=== PATIENT | female | born 1995 | race Caucasian/White ===

== ENCOUNTER 2019-04-20 15:00 | Emergency (ER) | payer BC ==
[~2019-04-20] VITALS: Ht 162.6 cm; Wt 86.2 kg
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
--- OUTSIDE RECORDS SUMMARY | 2019-04-20 15:02 | XMS REPORT | Clinical Summary ---
Author Author [facility] Organization [facility] Address Unknown Phone Unavailable Care Team Providers Care Biodiesel Production Associate Name Role Phone Asked, No Pcp PCP Unavailable Allergies No Known Allergies Medications End Date Status Medication Sig Dispensed Refills Start Date Active ethynodiol diac-eth Take 1 tablet 84 tablet 4 estradiol (ZOVIA 1/35E, by mouth 9 28,) 1-35 mg-mcg per daily. tablet 08/29/2018 ethynodiol diac-eth Take 1 tablet 84 tablet 4 estradiol (ZOVIA 1/35E, by mouth 7 28,) 1-35 mg-mcg per daily. tablet 11/29/2018 ethynodiol diac-eth Take 1 tablet 84 tablet 0 estradiol (KELNOR,ZOVIA) by mouth 9 1-35 mg-mcg per tablet daily for 84 days. 01/31/2019 Discontinued (Reorder) ethynodiol diac-eth Take 1 tablet 0 estradiol (ZOVIA 1/35E, by mouth 28,) 1-35 mg-mcg per daily. tablet Active Problems Not on file Encounters Care Team Description Date Type Specialty Richard Velez MD Well woman exam (Primary Dx); Screening examination for venereal disease 01/31/2019 Office Visit Obstetrics and Gynecology Daria Sandra MA 09/06/2018 Refill Obstetrics and Gynecology after 04/19/2018 Family History Medical History Relation Name Comments No Known Problems Father No Known Problems Mother Relation Name Status Comments Father Alive Mother Alive Social History Date Tobacco Use Types Packs/Day Years Used Never Smoker Smokeless Tobacco: Never Used Drinks/Week oz/Week Comments Alcohol Use ocassional Yes Sex Assigned at Date Recorded Not on file Industry Job Start Date Occupation Not on file Not on file Not on file Travel End Travel History Travel Start No recent travel history available. Last Filed Vital Signs Reading Time Taken Comments Vital Sign 126/77 01/31/2019 10:51 AM CDT Blood Pressure 96 01/31/2019 10:51 AM CDT Pulse - - Temperature - - Respiratory Rate - - Oxygen Saturation - - Inhaled Oxygen Concentration 89.4 kg (197 lb) 01/31/2019 10:51 AM CDT Weight 162.6 cm (5' 4") 01/31/2019 10:51 AM CDT Height 33.81 01/31/2019 10:51 AM CDT Body Mass Index Plan of Treatment Health Maintenance Due Date Last Done Comments INFLUENZA VACCINE 04/03/2019 Procedures Comments Procedure Name Priority Date/Time Associated Diagnosis HIV 1/2 ANTIGEN/ANTIBODY, Routine 01/31/2019 FOURTH GENERATION W/RFL 11:12 AM CDT (REFLEX [facility]) RPR SCREEN Routine 01/31/2019 Well woman exam 11:12 AM CDT Screening examination for venereal disease HEPATITIS B SURFACE Routine 01/31/2019 Well woman exam ANTIGEN 11:12 AM CDT Screening examination for venereal disease HEPATITIS C ANTIBODY Routine 01/31/2019 Well woman exam 11:12 AM CDT Screening examination for venereal disease CHLAMYDIA/N. GONORRHOEAE Routine 01/31/2019 RNA, TMA 11:08 AM CDT THINPREP TIS PAP REFLEX Routine 01/31/2019 HPV MRNA E6/E7 11:08 AM CDT PAP W/AGE BASED SCREENING Routine 01/31/2019 Well woman exam [address]US [address]/NG 11:08 AM CDT Screening examination for venereal disease after 04/19/2018 Results * HIV 1/2 ANTIGEN/ANTIBODY, FOURTH GENERATION W/RFL (REFLEX [facility]) (01/31/2019 11:12 AM CDT) HIV AG/AB 4th NON-REACTIVE NON-REACTIVE [facility] gen Comment: DIAGNOSTICS HIV-1 antigen and HIV-1/HIV-2 PASCUAL antibodies were not detected. There is no laboratory evidence of HIV infection. PLEASE NOTE: This information has been disclosed to you from records whose confidentiality may be protected by state law.If your state requires such protection, then the state law prohibits you from making any further disclosure of the information without the specific written consent of the person to whom it pertains, or as otherwise permitted by law. A general authorization for the release of medical or other information is NOT sufficient for this purpose. For additional information please refer to http://[employer]/faq/LER919 (This link is being provided for informational/ educational purposes only.) The performance of this assay has not been clinically validated in patients less than 2 years old. Specimen Resulting Agency Comment Performing Organization Information: Site ID: [id number] Address: [address] [place] [phone] Director: Mara Whitfield Performing Organization Address City/[facility] [[email or web address] Phone Number [place] [address] * Hepatitis C antibody (01/31/2019 11:12 AM CDT) Hepatitis C Ab NON-REACTIVE NON-REACTIVE creads [place] Signal/cutoff 0.01 <1.00 [facility] Comment: DIAGNOSTICS HCV antibody was non-reactive. [place] There is no laboratory evidence of HCV infection. In most cases, no further action is required. However, if recent HCV exposure is suspected, a test for HCV RNA (test code 02423) is suggested. For additional information please refer to http://[employer] Mobile/faq/NDU54i9 (This link is being provided for informational/ educational purposes only.) Specimen Blood Resulting Agency Comment Performing Organization Information: Site ID: [id number] [facility] Address: [address] [place] [phone] Director: Mara Whitfield Performing Organization Address City/[facility]/Zipcode Phone Number [place] [address] * RPR screen (01/31/2019 11:12 AM CDT) RPR (monitor) NON-REACTIVE NON-REACTIVE [facility] w/refl titer DIAGNOSTICS [place] Specimen Blood Resulting Agency Comment Performing Organization Information: Site ID: RGA [facility]: [facility] Address: [address] [place] [phone] Director: Mara Whitfield Performing Organization Address [facility]/Zipcode Phone Number [employer] [address] [address] * Hepatitis B surface antigen (01/31/2019 11:12 AM CDT) Hepatitis B NON-REACTIVE NON-REACTIVE freee surface Ag [facility] Specimen Blood Resulting Agency Comment Performing Organization Information: Site ID: RGA [facility] Address: [address] [place] [phone] Director: Mara Whitfield Performing Organization Address [facility] [[email or web address] Phone Number [employer] [address] [address] * PAP W/AGE BASED SCREENING PLUS CT/NG (01/31/2019 11:08 AM CDT) Comment Comment: [facility] This order for age-based DIAGNOSTICS-COREY cervical cancer and STI ING II screening follows ACOG guidelines(PB 168, 140, VKG163). See individual assays for performing site location. Specimen Swab Resulting Agency Comment Performing Organization Information: Site ID: [id number] [facility] Address: [address] [place] [phone] Director: Dr. Ramon Ryeez Performing Organization Address [facility] [[email or web address] Phone Number [employer] [address] II * CHLAMYDIA/N. GONORRHOEAE RNA, TMA (01/31/2019 11:08 AM CDT) Chlamydia NOT DETECTED NOT DETECTED freee trachomatis [facility] RNA, TMA ING II Neisseria NOT DETECTED NOT DETECTED [facility] gonorrhoeae [facility] RNA, TMA ING II (Always Comment: [facility] message) This test was performed using DIAGNOSTICS-[facility] the APTIMA COMBO2 Assay ING II ([employer] The analytical performance characteristics of this assay, when used to test SurePath specimens have been determined by [facility]. Specimen Resulting Agency Comment Performing Organization Information: Site ID: [id number] Name: [facility] Address: [address] [place] [phone] Director: Dr. Ramon Reyez Performing Organization Address [facility] [[email or web address] Phone Number [employer] [email or web address] [address] [place] [address] II * THINPREP TIS PAP REFLEX HPV mRNA E6/E7 (01/31/2019 11:08 AM CDT) Clinical None given freee information [employer] [place] Date of last NONE GIVEN [facility] menstrual DIAGNOSTICS period [place] Prev. pap: NONE GIVEN [facility] [place] Prev. bx: NONE GIVEN [facility] [place] Source None given [facility] [place] Statement of Comment: [facility] adequacy Satisfactory for evaluation. DIAGNOSTICS Endocervical/transformation [place] zone component absent. Age and/or menstrual status not provided Interpretation/ Comment: Negative for [facility] result: intraepithelial lesion or DIAGNOSTICS malignancy. [place] Comment Comment: [facility] This Pap test has been DIAGNOSTICS evaluated with INXPO technology. [employer]otechnologis Comment: [facility] t JRR, CT (ASCP) DIAGNOSTICS CT screening location: [address], [place] [id number] Comment Comment: [facility] EXPLANATORY NOTE: DIAGNOSTICS The Pap is a screening test [facility] for cervical cancer. It is not a diagnostic test and is subject to false negative and false positive results. It is most reliable when a satisfactory sample, regularly obtained, is submitted with relevant clinical findings and history, and when the Pap result is evaluated along with historic and current clinical information. Specimen Resulting Agency Comment Performing Organization Information: Site ID: [facility]GA [facility] Address: [address] [place] [phone] Director: Mara Whitfield Performing Organization Address [facility] [[email or web address] Phone Number [employer] creads [place] [phone] after 04/19/2018 Insurance Type Payer Benefit Subscriber ID Effective Phone Address Plan / Dates Group PPO BCBS BCBS xxxxxxxxxxxx [id number] JANIE resrema PPO/LORIN SNOWDEN PPO Advance Directives Patient Compressed Gases Tester Explanation Type Date Recorded Advance Directives, Living Will and Medical Power of Reimbursement Coordinator
[2019-04-20 16:23] VITALS: BP 127/70
--- NOTE | 2019-04-20 19:06 | Diagnostic Imaging Report ---
Exam: Right finger, 3 views History: Dropped heavy object on tip of third digit, swelling Comparison: None. Findings: There is normal bone mineralization. Acute, mildly displaced intra-articular fracture involving the dorsal aspect of the base of the third finger distal phalanx. Other bony structures are intact. Joint spaces preserved. No abnormal soft tissue calcification or soft tissue defect. Mild soft tissue swelling in the third finger. Impression: 1. Acute, mildly displaced intra-articular fracture involving the dorsal aspect of the base of the third finger distal phalanx, with associated soft tissue swelling. Signed by: Dr. Nico Cabrera M.D. on 04/20/2019 4:08 PM
== END 2019-04-20 16:37 | disposition home or self-care (01) ==
LOC: FSED 15:00
DX: S62.663A Nondisplaced fracture of distal phalanx of left middle finger, initial encounter for closed fracture (principal); S60.032A Contusion of left middle finger without damage to nail, initial encounter; S60.222A Contusion of left hand, initial encounter; W20.8XXA Other cause of strike by thrown, projected or falling object, initial encounter; Y93.B9 Activity, other involving muscle strengthening exercises; Y92.39 Other specified sports and athletic area as the place of occurrence of the external cause
CPT/HCPCS: 99283